=== PATIENT | female | born 1940 | race Caucasian/White ===

== ENCOUNTER → 2017-09-09 09:46 | Outpatient (CLI) | payer MEDICARE, OTHER, SELFPAY ==
--- NOTE | 2017-09-09 10:45 | BRBX_PTH ---
PATIENT: Tim TALBOT LOC: [facility] U#:[id number] AGE/SX: 84/F ROOM: RE09/09/[address]: Dr. Jay Mathew MD : 1940 BED: DIS: SPEC #: [id number] RECD: 09/09/17 11:39 STATUS: CLEMENCIA REGeri #: [id number] BIANKA: 09/09/17 10:[address]: Jay Mathew DEPT: SURGICAL PATHOLOGY RECD BY: Guru Soto ENTERED: 09/09/17 13:08 SP TYPE: BREAST BX OTHR DR: Dr. Enrrique Garcia MD Tissues: Left breast, NOS Procedures: Surgery Specimen Level IV HEADER OPERATION: Left breast stereotactic needle core biopsy PRE-OP DIAGNOSIS: Left breast 1 o?clock posterior depth calcifications TISSUE SUBMITTED: Majority of calcifications in slot #11 ISCHEMIC TIME: 3 minutes FIXATION TIME: 8.5 hours MICROSCOPIC DIAGNOSIS Left breast, 1 o?clock posterior depth calcifications, stereotactic needle core biopsy: Focal fibrocystic changes and dense fibrosis. Focal polarizable microcalcifications and rare non-polarizable microcalcifications. Negative for atypia or malignancy. ASAD:[place] 09/10/17 COMMENT Multiple levels are examined. Correlation with clinical, radiologic findings and appropriate follow up are necessary. MICROSCOPIC DESCRIPTION Slides are reviewed. GROSS DESCRIPTION Received in fixative is one container labeled with the patient's name and designated left breast. The specimen consists of multiple elongated fragments of dent-yellow fibroadipose tissue that in aggregate measure 5 x 3 x 0.6 cm. The entire specimen is submitted in four cassettes. / ASAD:sonia 09/09/17 TC:5 CPT: 54448
--- NOTE | 2017-09-10 19:49 | PCM.OPRPT ---
Report of Operation Date of Procedure: 09/09/17 Pre-Operative Diagnosis: left breast microcalcifications Post-Operative Diagnosis: successful stereotactic biopsy of left breast microcalcifications Surgery/Procedure Performed:: left vacuum-assisted core needle biopsy. [id number] radiograph, gel marker clip placement Type of Anesthesia:: Local Specimen's removed: left breast tissue Description of Procedure: The patient was brought to the stereotactic suite and informed of the plan course of events. The left breast was positioned in the true lateral to medial position on the [place] stereotactic table. Mammographic image demonstrated the area of abnormality to be located in the center of the radiograph. Stereotactic images were then obtained which demonstrated good positioning of the abnormality for biopsy with good stroke jeferson parameters. The breast was cleaned with Betadine. 1% lidocaine was used to anesthetize the skin and a small stab incision made. An 8-gauge mammotome needle was placed into the pre-fire position. Stereotactic images demonstrated good positioning around the planned biopsy site. Local anesthetic injected deeply in the breast. The needle was deployed. Post deployment images demonstrated good positioning of the planned biopsy site. Multiple vacuum-assisted samples were obtained and xusgqe-zsj-fpkst fashion. Specimen radiograph demonstrated micro-calcifications in the sample. A gel marker clip was deployed. Post biopsy images demonstrated good position of the clip relative the biopsy cavity. The breast was removed from compression. Steri-Strips and a dressing applied. Post procedure mammogram images were obtained.
== END ==
PROVIDERS: Family Provider Family Medicine; PCP Family Medicine; Visit Provider Surgery
DX: N60.12 Diffuse cystic mastopathy of left breast (principal); N60.32 Fibrosclerosis of left breast; R92.0 Mammographic microcalcification found on diagnostic imaging of breast; I10 Essential (primary) hypertension; M25.562 Pain in left knee; M25.561 Pain in right knee; G89.29 Other chronic pain; I35.9 Nonrheumatic aortic valve disorder, unspecified; Z79.82 Long term (current) use of aspirin; Z79.899 Other long term (current) drug therapy
CPT/HCPCS: 19081; 88305; J7050; A4648

== ENCOUNTER 2018-06-03 19:23 | Emergency (ER) | payer MEDICARE, OTHER, SELFPAY ==
[2018-06-03 19:24] VITALS: BP 158/78; PULSE 66; RESP 14; TEMP 36.5; O2SAT 98; BMI 26.8
[2018-06-03] MEDS: HYDROcodone Bitartrate/Apap 5/325 Tablet PO (20:23)
--- NOTE | 2018-06-03 20:25 | RAD_ITS ---
STUDY: X-RAY - RIGHT SHOULDER REASON FOR EXAM: Female, 77 years old. Pain TECHNIQUE: 3 view(s) of the shoulder. COMPARISON: None. FINDINGS: Normal glenohumeral articulation. There is degenerative arthrosis of the acromioclavicular joint without inferior osseous spur formation. Normal acromion. Normal humeral head and visualized proximal humerus. The soft tissue structures are unremarkable. Normal visualized pulmonary apex. RAD/Shoulder min 2 Views IMPRESSION: Acromioclavicular osteoarthritis. Electronically Signed: Claudy Pollard MD at 20:41 EDT Tel , Service support ,
--- NOTE | 2018-06-03 21:24 | ED.VISSUMM ---
- ER Visit Summary Date of Service: 06/03/18 Chief Complaint: Right shoulder pain History of Present Illness: The patient is a 77 F presenting with right shoulder pain. Patient states this started approximately a month ago. Pain has been intermittent. It worsened today. 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 She has taken no medications at home. She had no direct trauma. No chest pain or shortness of breath. Physical Examination: Vitals are stable. Patient is afebrile. Alert no acute distress. HEENT exam is unremarkable. Neck is supple. Lungs are clear and equal bilaterally. Heart is regular rate and rhythm. Extremities right anterior shoulder tenderness with painful range of motion. No erythema or warmth. Neurovascular intact distally. Skin is warm and dry. No focal neurologic deficit. Remainder of exam is unremarkable. Emergency Department Course and Treatment: Patient was given [place] with improvement. X-ray right shoulder shows acromioclavicular osteoarthritis. She is given a sling and advised range of motion exercises. She is given a short course of [place] for home. Advised to follow-up with her primary care physician. Advised return to ED if worsening complaints. Disposition: Discharge home Impression: Right shoulder pain This note was generated with [employer] dictation software. It may contain incorrect words, spelling, and punctuation that were not noted in review of the chart prior to signing ED Disposition - Plan for ED Patient: Referrals: Enrrique Garcia MD [Primary Care Provider] -
--- NOTE | 2018-06-03 21:27 | ED.DCSUM_ITS ---
- ER Visit Summary Date of Service: 06/03/18 Chief Complaint: Right shoulder pain History of Present Illness: The patient is a 77 F presenting with right shoulder pain. Patient states this started approximately a month ago. Pain has been intermittent. It worsened today. 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 She has taken no medications at home. She had no direct trauma. No chest pain or shortness of breath. Physical Examination: Vitals are stable. Patient is afebrile. Alert no acute distress. HEENT exam is unremarkable. Neck is supple. Lungs are clear and equal bilaterally. Heart is regular rate and rhythm. Extremities right anterior shoulder tenderness with painful range of motion. No erythema or warmth. Neurovascular intact distally. Skin is warm and dry. No focal neurologic deficit. Remainder of exam is unremarkable. Emergency Department Course and Treatment: Patient was given [place] with improvement. X-ray right shoulder shows acromioclavicular osteoarthritis. She is given a sling and advised range of motion exercises. She is given a short course of [place] for home. Advised to follow-up with her primary care physician. Advised return to ED if worsening complaints. Disposition: Discharge home Impression: Right shoulder pain This note was generated with [employer] dictation software. It may contain incorrect words, spelling, and punctuation that were not noted in review of the chart prior to signing ED Disposition - Plan for ED Patient: Referrals: Enrrique Garcia MD [Primary Care Provider] -
--- NOTE | 2018-06-03 21:28 | DCINST.ED_ITS ---
ED Disposition - Plan for ED Patient: Instructions: ED Sprain Shoulder Prescriptions: Hydrocodone Bitart/Apap 5-325 [[place] 5MG-325MG] 1 tablet PO Q6H PRN PRN 3 Days #10 tablet PRN Reason: Pain Referrals: Enrrique Garcia MD [Primary Care Provider] -
[2018-06-03 22:11] VITALS: PULSE 97; RESP 14; O2SAT 98
== END 2018-06-03 22:14 | disposition home or self-care (01) ==
LOC: ED 20:41
PROVIDERS: Emergency Provider Emergency Medicine; Family Provider Family Medicine; PCP Family Medicine
DX: M25.511 Pain in right shoulder (principal); I10 Essential (primary) hypertension; Z79.82 Long term (current) use of aspirin; Z79.899 Other long term (current) drug therapy
CPT/HCPCS: 73030; 99282

== ENCOUNTER 2020-01-19 06:53 | Emergency (ER) | payer MEDICARE, OTHER, SELFPAY ==
[2020-01-19 06:55] VITALS: BP 163/54; PULSE 65; RESP 12; TEMP 36.2; O2SAT 97; BMI 27.1
[2020-01-19 06:58] VITALS: BP 163/54; PULSE 65; RESP 12; TEMP 36.2; O2SAT 97
--- NOTE | 2020-01-19 07:00 | ED.RN ---
veena Birmingham phone number [phone]
--- NOTE | 2020-01-19 07:20 | EKG12_ITS ---
Test Reason : SOB Blood Pressure : / mmHG Vent. Rate : 054 BPM Atrial Rate : 054 BPM P-R Int : 186 ms QRS Dur : 104 ms QT Int : 420 ms P-R-T Axes : 004 -45 017 degrees QTc Int : 398 ms Sinus bradycardia with Premature supraventricular complexes Left anterior fascicular block Septal infarct , age undetermined Abnormal ECG Confirmed by MISBAH DUGGAN, EMILIANA ([id number]), story editor JEREMI FOLEY ([id number]) on 01/20/2020 1:49:25 PM Referred By: [facility] Confirmed By:NEHA CRAWLEY MD
--- NOTE | 2020-01-19 07:27 | ED.VISSUMM ---
- ER Visit Summary Date of Service: 01/19/20 Chief Complaint: [Shortness of breath] History of Present Illness: The patient is a 79 F [ presents to the emergency department with complaint of just not feeling well/right last night. 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 Patient was given a Covid test and was told that she came up positive. Patient states that she just has a little bit of a stuffy nose and minimal cough. She denies any chest pain. She denies recent travel or surgery. She denies urinary symptoms. She denies headache or body aches. Patient states that she lives alone and got nervous. Her daughter brought her in for evaluation today. Patient no longer feels short of breath currently. Patient has history of hypertension.] No recent travel or surgery. Physical Examination: [HEENT-PERRLA, EOMI. Cranial nerves II through XII grossly intact. TMs clear. Mucous membranes moist. No adenopathy. Cardiovascular-regular rate and rhythm without murmur or ectopy Lungs-clear to auscultation, chest wall stable without crepitus or subcu emphysema Abdomen-normoactive bowel sounds, soft, nontender, no rebound or rigidity, no peritoneal signs. Extremities-intact ?4, normal range of motion, normal pulses, atraumatic] Test Results: [EKG obtained on arrival shows sinus bradycardia with a ventricular rate of 54 bpm. CBC with differential showed a white count of 3.4, hemoglobin 13, hematocrit 40, placed 215. Chemistries unremarkable. Troponin less than 0.015. D-dimer was 0.66 and considered normal when corrected for age. Chest x-ray showed nothing significant lungs were clear. X-ray was read by radiology and also evaluated by myself.] Emergency Department Course and Treatment: [IV line established on arrival. Patient placed on a youth nutritional monitor.] Treatment Plan: [Patient advised to follow-up with primary care physician in 5 to 7 days. She is advised to return if increasing shortness of breath or condition should worsen anyway. I suspect there is a component of anxiety and worry due to her Covid diagnosis as she stated is much.] Disposition: [Discharged home in stable condition] Impression: [COVID-19 URI Dyspnea-resolved] This note was generated with Pin[employer] software. It may contain incorrect words, spelling, and punctuation that were not noted in review of the chart prior to signing ED Disposition - Plan for ED Patient: Referrals: Enrrique Garcia MD [Primary Care Provider] -
[2020-01-19 07:31] LABS: Absolute Lymphocyte Count 0.87 X10^3/uL (0.83-4.51); Absolute Neutrophil Count 2.1 X10^3/uL (2.0-7.7); Basophil# 0.03 X10^3/uL; Basophil% 0.9 % (0-1); Eosinophil# 0.15 X10^3/uL; Eosinophils% 4.5 % (0-5); Hematocrit 40.2 % (37-47); Hemoglobin 13.4 g/dL (12.0-15.0); Lymphocyte # 0.87 X10^3/ul (4.0); Lymphocyte % 25.8 % (19-41); Mean Corp Hgb Conc 33.3 g/dL (32-36); Mean Corpuscular Hgb 29.6 pg (27.0-32.0); Mean Corpuscular Volume 88.9 fL (81-99); Mean Platelet Vol. 9.4 fl (6.2-12.0); Monocyte# 0.23 X10^3/uL; Monocyte% 6.8 % (0-10); NRBC Flagged by Analyzer 0 % (0-5); Neutrophil # 2.08 X10^3/uL (2.7-7.7); Neutrophil % 61.7 % (47-70); Platelet Count 215 K/mm3 (150-450); RBC Distribution Width CV 13.5 % (11.6-14.6); RBC Distribution Width SD 43.7 fl (35.1-43.9); Red Blood Count 4.52 M/mm3 (4.2-5.4); White Blood Count 3.4 K/mm3 (4.4-11.0)
--- NOTE | 2020-01-19 07:45 | RAD_ITS ---
STUDY: X-RAY CHEST REASON FOR EXAM: Female, 79 years old. DYSPNEA, COVID+ LAST SATURDAY TECHNIQUE: Single AP portable view of the chest. COMPARISON: None. FINDINGS: EKG electrodes are seen. The lungs are clear and expanded. There is no demonstrated pleural abnormality. There is borderline cardiomegaly. Normal mediastinum and haily. Normal visualized pulmonary arteries. There is atherosclerotic tortuosity of the aortic arch and descending thoracic aorta. There are diffuse degenerative changes of the visualized thoracic spine. Minimal levoscoliosis of the distal thoracic spine. Normal visualized ribs, clavicles, and shoulders. There is no demonstrated abnormality of the visualized soft tissue structures of the upper abdomen. RAD/Chest 1 View (Portable) IMPRESSION: Borderline cardiomegaly. The lungs are clear. Electronically Signed: Shalom Becker, at 8:13 EST , Service support ,
[2020-01-19 07:46] LABS: BUN 25 mg/dL (7-18); Creatinine, Serum 1.19 mg/dL (0.55-1.02); Estimated Creatinine Clearance 35.06 ml/min; Glucose 98 mg/dL (74-106)
[2020-01-19 07:47] LABS: Anion Gap 5 (5-15); Calcium,Total 9.6 mg/dL (8.5-10.1); Chloride 105 mmol/L (98-107); EST Glomerular Filtration Rate 47 mL/min (>60); Est Glom Filt Rate - Afr Amer 56 mL/min (>60); Potassium 3.6 mmol/L (3.5-5.1); Sodium Level 137 mmol/L (136-145)
[2020-01-19 07:58] VITALS: BP 135/58; PULSE 70; RESP 13; TEMP 36.2; O2SAT 95
[2020-01-19 08:10] LABS: D-Dimer Quantitative (DVT/PE) 0.66 FEU/ug/m (0.27-0.49)
--- NOTE | 2020-01-19 08:35 | ED.DEP ---
ED Disposition - Plan for ED Patient: Instructions: ED Bronchitis, No Antibiotic (Adult) Referrals: Enrrique Garcia MD [Primary Care Provider] - 5-7 Days
[2020-01-19 08:59] VITALS: BP 120/65
== END 2020-01-19 09:06 | disposition home or self-care (01) ==
LOC: ED 08:07
PROVIDERS: Emergency Provider Emergency Medicine; PCP Family Medicine
DX: U07.1 COVID-19 (principal); J06.9 Acute upper respiratory infection, unspecified; I10 Essential (primary) hypertension; Z79.82 Long term (current) use of aspirin
CPT/HCPCS: 71045; 71046; 80048; 84484; 85025; 85379; 93005; 99285

== ENCOUNTER 2024-03-24 20:24 | Emergency (ER) | payer MEDICARE, SELFPAY ==
[2024-03-24 20:25] VITALS: BP 148/85; PULSE 88; RESP 18; TEMP 36.2; O2SAT 98; BMI 21.9
[2024-03-24] MEDS: 0.9% Normal Saline (1000mL) 1,000 ML 1000 ML IV (21:19)
[2024-03-24 21:29] LABS: Absolute Lymphocyte Count 1.04 X10^3/uL (0.83-4.51); Absolute Neutrophil Count 2.4 X10^3/uL (2.0-7.7); Basophil# 0.05 X10^3/uL; Basophil% 1.3 % (0-1); Eosinophil# 0.14 X10^3/uL; Eosinophils% 3.6 % (0-5); Hemoglobin 11.6 g/dL (12.0-15.0); Lymphocyte # 1.04 X10^3/ul (0.83-4.51); Lymphocyte % 26.5 % (19-41); Mean Corp Hgb Conc 33.1 g/dL (32-36); Mean Corpuscular Hgb 30.3 pg (27.0-32.0); Mean Corpuscular Volume 91.4 fL (81-99); Mean Platelet Vol. 9.4 fl (6.2-12.0); Monocyte# 0.32 X10^3/uL; Monocyte% 8.1 % (0-10); NRBC Flagged by Analyzer 0 % (0-5); Neutrophil # 2.37 X10^3/uL (2.7-7.7); Neutrophil % 60.2 % (47-70); Platelet Count 193 K/mm3 (150-450); RBC Distribution Width CV 13.6 % (11.6-14.6); RBC Distribution Width SD 46.4 fl (35.1-43.9); Red Blood Count 3.83 M/mm3 (4.2-5.4); White Blood Count 3.9 K/mm3 (4.4-11.0)
--- NOTE | 2024-03-24 21:39 | EX.ED.DYSGE1 ---
HPI History of Present Illness Chief Complaint: Weakness Detail of Chief Complaint: Weakness, poor p.o. intake, not her normal self Informant: patient and family Onset/Context/Timing Onset: Days Context: Gradual Onset Timing: Continuous and Waxes and wanes Quality: Generalized weakness, no appetite for 2 to 3 days, forehead discomfort Location: Generalized Current Severity: Mild Maximum Severity: Moderate Worsened by: Nothing specific Relieved by: Nothing Associated Symptoms Associated Symptoms: Nausea, loss of appetite and not her normal self Narrative Narrative: Patient is an 83-year-old woman. She has history of hypertension. She complains of forehead discomfort and retro-orbital discomfort. She reports intermittent photophobia. She reports intermittent neck pain. She denies history of migraine headaches. She has not had a thunderclap headache or abrupt onset of headache. She denies vomiting or diarrhea. She denies fever or chills. She denies cardiac or respiratory symptoms. She denies abdominal pain. She denies rash. She denies myalgias or arthralgias. Daughter was asked to clarify what she meant by confusion. It was determined that she is not her normal self. It is not the fact that she is disoriented. Patient does not wish to be here. She states her daughter made her come in. Prior similar symptoms: No Recent Illness/Hospitalization: No [facility] Medical History Hypertension Home Medications ?Medication ?Instructions ?Recorded ?Last Taken ?Type Lisinopril/Hydrochlorothiazide 1 tab PO DAILY 05/09/13 Unknown History [Zestoretic Tablet] aspirin 81 mg tablet,delayed 81 mg PO DAILY 06/03/18 Unknown History release (Aspir-) ibuprofen 200 mg capsule (Advil 200 mg PO TID 06/03/18 Unknown History Liqui-Gel) nitrofurantoin 100 mg PO Q12 #10 CAPSULES 03/24/24 Unknown Rx monohydrate/macrocrystals 100 mg capsule Allergy/AdvReac Type Severity Reaction Status Date / Time No Known Allergies Allergy Verified 03/24/24 20:24 Social History (Updated 03/24/24 @ 21:[address] Addy Clemente MD) household members: none Smoking Status: Never smoker ROS ROS ED Constitutional Constitutional ED: Denies chills, fever(s), subjective, sweats or weight loss Eyes Eyes: Reports other Details: Further detailed HPI narrative ; Denies blurry vision, change in vision or diplopia ENT ENT ED: Denies ear pain, rhinorrhea or sore throat Cardiovascular Cardiovascular: Denies chest pain, palpitations or racing heartbeat Respiratory/Chest Respiratory/Chest: Denies cough, dyspnea or dyspnea on exertion Gastrointestinal Gastrointestinal: Reports nausea; Denies abdominal pain, diarrhea, melena or vomiting Genitourinary Genitourinary ED: Denies dysuria, hematuria or urinary frequency Musculoskeletal Musculoskeletal: Denies arthralgias or myalgias Integumentary Denies rash Neurologic Neurologic: Reports headache(s) and weakness; Denies paresthesias Psychiatric Psychiatric: Denies anxiety or depression Hematologic/Lymphatic Hematologic/Lymphatic: Denies systems reviewed and no addt'l complaints, except as documented EXAM Physical Exam Const Vital Signs: 03/24/24 20:25 Temperature 97.2 F L Temperature Source Temporal Pulse Rate 88 Respiratory Rate 18 Blood Pressure 148/85 H Blood Pressure Mean 106 Pulse Ox 98 Oxygen Delivery Method Room Air Vital signs remarkable slight elevation of blood pressure. Positive well nourished and well developed General Appearance ED: well developed and NAD; Negative for cyanotic or diaphoretic HEENT Reports dry mucous membranes HEENT Narrative: Head is atraumatic normocephalic. There is no tenderness over the temporal arteries. Ears normal. Nares patent. Posterior pharynx out erythema or exudate. Uvula midline. No deviation of protrusion. Mouth ED: Yes dry mucous membranes Mouth: dry mucous membranes Eyes PERRL and EOMs intact bilaterally Eyes Narrative: There is no nystagmus. There is no photophobia. General Eye ED: Negative for pale conjunctiva or scleral icterus Neck no lymphadenopathy, supple and no JVD Chest Wall inspection of chest normal and palpation of chest normal Resp normal respiratory effort and clear to auscultation bilaterally Cardio regular rate, regular rhythm, S1 normal heart sound, S2 normal heart sound and no murmurs GI normal to inspection, nondistended, normoactive bowel sounds, non-tender, non-distended and no masses; Negative for hepatosplenomegaly Extremity normal to inspection General Extremety ED: Negative for edema or tenderness General Extremity: Negative for edema Neuro oriented x3, CN's II-XII intact bilaterally and no sensory deficits noted Neuro Narrative: There is no dysmetria. Patient is awake but not alert. She has no clonus. There is no Babinski sign noted. Sensorium / Orientation: Negative for alert Motor Exam: strength 5/5 throughout Psych mental status grossly normal Skin no rashes or lesions noted, no wounds and skin turgor normal General Skin Exam: elasticity normal; Negative for jaundice MDM MDM MDM Narrative Medical decision making narrative: Patient with vague symptoms. This may represent a viral illness. There is no concern for subarachnoid hemorrhage or giant cell arteritis will obtain CBC to assess white count and differential as well as H&H. Clinically she does not appear anemic nor is she symptomatic. BMP to assess renal function and electrolytes. 1 L normal saline was ordered since clinically she is dehydrated. Lab Data Attestation: I reviewed the patient's lab results. Lab results narrative: Patient is neutropenic with normal differential. Mild anemia with normal indices. Review of prior records indicates patient has neutropenia and has had low white cell counts dating back to April 2013. Urine is consistent with infection and is a good specimen. Since patient is neutropenic we will treat with antibiotics. She has chronic neutropenia. Labs: Laboratory Results - last 24 hr 03/24/24 03/24/24 21:17 22:30 WBC 3.9 L RBC 3.83 L Hgb 11.6 L Hct 35.0 L MCV 91.4 MCH 30.3 MCHC 33.1 RDW Std Deviation 46.4 H RDW Coeff of Yesi 13.6 Plt Count 193 MPV 9.4 Immature Gran % (Auto) 0.300 Neut % (Auto) 60.2 Lymph % (Auto) 26.5 Weld % (Auto) 8.1 Eos % (Auto) 3.6 Baso % (Auto) 1.3 H Absolute Neuts (auto) 2.4 Absolute Lymphs (auto) 1.04 Nucleated RBC % 0 Sodium 139 Potassium 4.1 Chloride 106 Carbon Dioxide 26.0 Anion Gap 7 BUN 37 H Creatinine 1.24 H Estim Creat Clear Calc 32.75 Est GFR (MDRD) Af Amer 53 L Est GFR (MDRD) Non-Af 44 L BUN/Creatinine Ratio 29.8 H Glucose 95 Calcium 10.0 Urine Color Yellow Urine Clarity Sl. Cloudy Urine pH 7.0 Ur Specific [place] 1.010 Urine Protein Negative Urine Glucose (UA) Normal Urine Ketones Negative Urine Occult Blood 25 H Urine Nitrite Positive H Urine Bilirubin Negative Urine Urobilinogen Normal Ur Leukocyte Esterase 100 H Urine RBC 0-5 SEEN Urine WBC 5-10 SEEN Ur Squamous Epith Cells 0-5 SEEN Urine Bacteria 2+ Urine Mucus 0 SEEN Treatment and Re-Evaluation :: Patient and daughter were informed of results. Patient appears much more alert after infusion of 1 L normal saline. Patient received her first dose of Macrobid in the emergency department. Discharge Plan Triage Chief Complaint: Weakness ED Provider: Addy Clemente Dx/Rx/DC Orders Clinical Impression: Acute bacterial simple cystitis, Dehydration, mild, Generalized weakness, Neutropenia, Elevated blood pressure reading with diagnosis of hypertension Instructions: ED Cystitis Female Adult Prescriptions: New nitrofurantoin monohyd/m-cryst 100 mg capsule 100 mg PO Q12 Qty: 10 0RF No Action Lisinopril/Hydrochlorothiazide [Zestoretic 20/25 Tablet] 1 TABLET tablet 1 tab PO DAILY ibuprofen [Advil Liqui-Gel] 200 MG capsule 200 mg PO TID aspirin [Aspir-81] 81 MG tablet,delayed release (DR/EC) 81 mg PO DAILY Primary Care Provider: Enrrique Garcia Referrals: Enrrique Garcia MD [Primary Care Provider] - 3-5 Days if not improving Print Language: Romanian Disposition Disposition: Home, Self Care
[2024-03-24 21:43] LABS: Anion Gap 7 (5-15); BUN 37 mg/dL (7-18); BUN/Creat Ratio 29.8 RATIO (10-20); Chloride 106 mmol/L (98-107); Creatinine, Serum 1.24 mg/dL (0.55-1.02); EST Glomerular Filtration Rate 44 mL/min (>60); Est Glom Filt Rate - Afr Amer 53 mL/min (>60); Estimated Creatinine Clearance 32.75 ml/min; Glucose 95 mg/dL (74-106); Potassium 4.1 mmol/L (3.5-5.1); Sodium Level 139 mmol/L (136-145)
[2024-03-24 22:24] VITALS: BP 136/84; PULSE 71; RESP 15; O2SAT 95
[2024-03-24 22:33] LABS: Mucous, Urine 0 SEEN /hpf (<or=2+)
[2024-03-24 22:35] LABS: Color, Urine Yellow (Yellow); Glucose, Dipstick Normal (Normal); Ketone-Dipstick Negative (Negative); Leukocyte Esterase-Dipstick 100 /ul (Negative); Nitrite-Dipstick Positive (Negative); Occult Blood-Urine 25 /ul (Negative); Protein-Dipstick Negative (Negative); Urine Bilirubin Dipstick Negative (Negative); Urine Clarity Sl. Cloudy (Clear); Urine Urobilinogen Normal (Normal)
[2024-03-24 22:42] LABS: Bacteria 2+ /hpf (None Seen); Red Blood Cells-Urine 0-5 SEEN /hpf (0-5); Squamous Epithelial Cells - UA 0-5 SEEN /hpf (5-10); White Blood Cells 5-10 SEEN /hpf (0-5)
[2024-03-24] MEDS: Nitrofurantoin Macrocrystals 100 MG Capsule PO (23:34)
== END 2024-03-24 23:36 | disposition home or self-care (01) ==
PROVIDERS: Emergency Provider Emergency Medicine; PCP Family Medicine; Visit Provider Emergency Medicine
DX: N30.00 Acute cystitis without hematuria (principal); E86.0 Dehydration; I10 Essential (primary) hypertension; R11.0 Nausea; R51.9 Headache, unspecified; M54.2 Cervicalgia; D70.9 Neutropenia, unspecified; Z79.82 Long term (current) use of aspirin; Z79.899 Other long term (current) drug therapy
CPT/HCPCS: 80048; 81001; 85025; 96360; 99284; A4216